=== PATIENT | female | born 1960 | race Caucasian/White ===

== ENCOUNTER 2024-04-24 07:29 | Day surgery (SDC) | payer BC ==
[2024-04-24] MEDS: Lactated Ringers 1,000 ML IV SCH (07:57)
[2024-04-24] MEDS ORDERED: propofoL 50 ML ONE (08:39)
[2024-04-24] MEDS ORDERED: Ondansetron 4 MG/2 ML SDV ONE (09:10)
[2024-04-24] MEDS ORDERED: fentaNYL 100 MCG/2 ML SDV ONE (09:11)
== END 2024-04-24 10:05 | disposition home or self-care (01) ==
LOC: MW.SDS 07:29
PROVIDERS: ATTEND Surgery
DX: Z12.11 Encounter for screening for malignant neoplasm of colon (principal); K62.1 Rectal polyp; K57.30 Diverticulosis of large intestine without perforation or abscess without bleeding; K64.8 Other hemorrhoids; I10 Essential (primary) hypertension; E78.00 Pure hypercholesterolemia, unspecified; F32.A Depression, unspecified; F41.9 Anxiety disorder, unspecified; Z79.82 Long term (current) use of aspirin; Z79.899 Other long term (current) drug therapy
CPT/HCPCS: 45380; J2405; J2704; J3010; J7120; 00811